=== PATIENT | male | born 1995 | race African-American/Black ===

== ENCOUNTER 2016-07-11 13:16 | Emergency (ER) | payer OTHER ==
[~2016-07-11] VITALS: Ht 185.4 cm; Wt 82.3 kg
[2016-07-11] MEDS ORDERED: MOTRIN800 MG PO (14:08)
[2016-07-11 14:21] VITALS: BP 109/63
== END 2016-07-11 14:23 ==
LOC: EME 13:16
PROC: 2W3LX1Z Immobilization of Right Lower Extremity using Splint (ICD-10-PCS; principal; 2016-07-11)
DX: S93.401A Sprain of unspecified ligament of right ankle, initial encounter (principal); X50.9XXA Other and unspecified overexertion or strenuous movements or postures, initial encounter; Y93.67 Activity, basketball; Y92.149 Unspecified place in prison as the place of occurrence of the external cause; Z88.9 Allergy status to unspecified drugs, medicaments and biological substances; Z87.891 Personal history of nicotine dependence
CPT/HCPCS: 73610; 99281; 99284